=== PATIENT | female | born 1960 | race Hispanic/Latino ===

== ENCOUNTER 2017-10-27 18:09 | Emergency (ER) | payer OTHER ==
[~2017-10-27] VITALS: Ht 157.5 cm; Wt 58.5 kg
[2017-10-27] MEDS ORDERED: SODIUM CHLORIDE 0.9% 1000ML 1,000 ML IV SCH (21:30)
[2017-10-27] MEDS ORDERED: INSULIN REGULAR, HUMAN 100 UNIT/1 ML 3ML VIAL IV ONE (21:30)
[2017-10-27 21:34] LABS: BASOPHILS % 0.5 % (0.0-1.0); EOSINOPHILS # (AUTO) 0.1 (0.0-0.4); EOSINOPHILS % 0.9 % (0.0-6.0); HEMATOCRIT 35.6 % (34.2-44.1); HEMOGLOBIN 12.2 g/dL (12.0-16.0); LYMPHOCYTES # (AUTO) 4.2 (1.0-3.2); LYMPHOCYTES % 49.2 % (18.0-39.1); MEAN CORPUSCULAR HEMOGLOBIN 29.2 pg (28-32); MEAN CORPUSCULAR HGB CONC 34.3 g/dL (31-35); MEAN CORPUSCULAR VOLUME 85.2 fL (81-99); MONOCYTES # (AUTO) 0.8 (0.2-0.8); MONOCYTES % 9.7 % (4.4-11.3); NEUTROPHILS # (AUTO) 3.4 (2.1-6.9); NEUTROPHILS % 39.1 % (38.7-80.0); PLATELET COUNT 233 x10e3/uL (140-360); RED BLOOD COUNT 4.18 x10e6/uL (3.6-5.1); RED CELL DISTRIBUTION WIDTH 12.6 % (11.7-14.4)
[2017-10-27 21:42] LABS: ANION GAP 15.3 mmol/L (8-16); CALCIUM 9.4 mg/dL (8.4-10.2); CREATININE, SERUM 1.68 mg/dL (0.57-1.11); POTASSIUM 4.3 mmol/L (3.5-5.1)
[2017-10-27] MEDS ORDERED: TYLENOL WITH C1 EACH PO (22:13)
[2017-10-27 22:50] VITALS: BP 196/82
== END 2017-10-27 22:55 | disposition home or self-care (01) ==
LOC: ER 18:09
DX: E11.65 Type 2 diabetes mellitus with hyperglycemia (principal)
CPT/HCPCS: 36415; 80048; 82948; 85025; 96360; 96374; 99283; J7030

== ENCOUNTER 2017-12-10 09:42 | Inpatient (IN) | payer OTHER ==
[~2017-12-10] VITALS: Ht 152.4 cm; Wt 61.0 kg
[2017-12-10] VITALS (29 sets, daily range): BP systolic 89–138; BP diastolic 54–94
[~2017-12-10 09:42] MED LIST: TYLENOL WITH C1 EACH PO
[2017-12-10] MEDS ORDERED: SODIUM CHLORIDE 0.9% 1000ML 1,000 ML IV SCH ×3 (10:30→12:30)
[2017-12-10] MEDS ORDERED: SODIUM CHLORIDE FLUSH 10 ML SYR INJ PRN (12:15)
[2017-12-10] MEDS ORDERED: NOREPINEPHRINE INJ 4MG/4ML 8 MG in DEXTROSE 5% 250ML 250 ML IV SCH (12:30)
[2017-12-10] MEDS ORDERED: NOREPINEPHRINE INJ 4MG/4ML 8 MG in SODIUM CHLORIDE 0.9% 250ML 250 ML IV SCH ×2 (14:00→14:30)
[2017-12-10] MEDS ORDERED: LATANOPROST2.5 ML OS (15:41)
[2017-12-10] MEDS ORDERED: ATORVASTATIN CA20 MG PO (15:41)
[2017-12-10] MEDS ORDERED: METHOCARBAMOL750 MG PO (15:41)
[2017-12-10] MEDS ORDERED: HYDROCHLOROTHIA25 MG PO (15:41)
[2017-12-10] MEDS ORDERED: TEMAZEPAM15 MG PO (15:41)
[2017-12-10] MEDS ORDERED: HYDROXYCHLOROQ200 MG PO (15:41)
[2017-12-10] MEDS ORDERED: JANUVIA100 MG PO (15:41)
[2017-12-10] MEDS ORDERED: GABAPENTIN300 MG PO (15:41)
[2017-12-10] MEDS ORDERED: CITALOPRAM HBR20 MG PO (15:41)
[2017-12-10] MEDS ORDERED: METFORMIN HCL500 MG PO (15:41)
[2017-12-10] MEDS ORDERED: GLIPIZIDE ER5 MG PO (15:41)
[2017-12-10] MEDS ORDERED: DORZOLAMIDE HCL10 ML OS (15:41)
[2017-12-10] MEDS ORDERED: METOPROLOL TART25 MG PEG (15:41)
[2017-12-10] MEDS ORDERED: DICLOFENAC 1% GEL TOP (15:41)
[2017-12-10] MEDS ORDERED: LISINOPRIL10 MG PO (15:41)
[2017-12-10] MEDS ORDERED: ULTRAM50 MG PO (15:41)
[2017-12-10] MEDS ORDERED: OMEPRAZOLE40 MG PEG (15:41)
[2017-12-10] MEDS ORDERED: OXYBUTYNIN CHLOR5 MG PO (15:41)
[2017-12-10] MEDS ORDERED: MORPHINE SULFATE 2 MG/ML SYR IV PRN (16:00)
[2017-12-10] MEDS ORDERED: DEXTROSE 50% SYRINGE 50 ML IV PRN (16:30)
[2017-12-10] MEDS: INSULIN REGULAR, HUMAN 100 UNIT/1 ML 3ML VIAL SQ SCH ×2 (18:22→21:00)
[2017-12-10] MEDS: METOCLOPRAMIDE HCL 10 MG TAB PO SCH ×2 (18:23→22:20)
[2017-12-10] MEDS: FAMOTIDINE 20 MG TAB PO SCH (18:23)
[2017-12-10] MEDS: DORZOLAMIDE HCL (OPTH) 10 ML BOTTLE OP SCH (18:24)
[2017-12-10] MEDS: NOREPINEPHRINE 8 MG/D5W 250 ML 250 ML IV SCH (19:00)
[2017-12-10] MEDS ORDERED: SODIUM BICARBONATE 8.4% 50 ML VIAL IV STA (19:05)
[2017-12-10] MEDS ORDERED: SODIUM BICARBONATE 8.4% INJ 50 ML SYR IV NR (19:30)
[2017-12-10 19:49] LABS: ANION GAP 17.2 mmol/L (8-16); CALCIUM 7.8 mg/dL (8.4-10.2); CREATININE, SERUM 7.5 mg/dL (0.57-1.11); POTASSIUM 4.2 mmol/L (3.5-5.1)
[2017-12-10] MEDS ORDERED: SODIUM BICARBONATE 8.4% INJ 50 ML SYR IV STA (20:49)
[2017-12-10] MEDS ORDERED: TEMAZEPAM 15 MG CAP PO SCH (21:00)
--- NOTE | 2017-12-10 21:23 | Diagnostic Imaging Report ---
EXAM: VENTILATION PERFUSION LUNG SCAN INDICATION: 57 F with acute onset SOB and elevated D-dimer. COMPARISON: None DISCUSSION: Xenon-133 gas 20 mCi was administered via inhalation. Dynamic images of the lungs in the posterior projection were obtained through single breath and washout phases. Distribution of tracer activity is mildly irregular throughout the lungs. Washout is diffusely delayed without evidence of air trapping. Perfusion images of the lungs in multiple projections were obtained following intravenous administration of 6 mCi of Tc-99m MAA. Distribution of tracer is mildly irregular throughout the lungs. There are no segmental perfusion defects of any size. The contours of the lungs are well demarcated. The cardiac silhouette is unremarkable. IMPRESSION: 1. Scan findings represent a VERY LOW probability for acute pulmonary embolic disease based on the PIOPED II criteria. 2. Scan findings are compatible with diffuse parenchymal and/or obstructive lung disease. Signed by: Dr. Fariha Higgins M.D. on 12/10/2017 9:20 PM
[2017-12-10] MEDS: SODIUM BICARBONATE 8.4% 150 ML in DEXTROSE 5% 1,000 ML IV SCH (21:39)
[2017-12-10] MEDS: LATANOPROST(OPTH) 2.5 ML BTL OS SCH (21:40)
[2017-12-10] MEDS: HEPARIN SOD (PORCINE) 5,000 UNIT/ML VIAL SC SCH (22:20)
[2017-12-10 22:53] LABS: ANION GAP 18.9 mmol/L (8-16); CALCIUM 7.9 mg/dL (8.4-10.2); CREATININE, SERUM 7.1 mg/dL (0.57-1.11); POTASSIUM 3.9 mmol/L (3.5-5.1)
--- NOTE | 2017-12-10 22:55 | Diagnostic Imaging Report ---
EXAM: US RENAL RETROPERITONEAL COMP INDICATION: \S\acute renal failure COMPARISON: None TECHNIQUE: Transverse and longitudinal images of the kidneys and bladder were obtained. FINDINGS: Right Kidney: Length: 9.2 cm Appearance: Normal echogenicity. Collecting system: No hydronephrosis Stones: None Cyst/Mass: None Left Kidney: Length: 9.5 cm Appearance: Normal echogenicity. Collecting system: No hydronephrosis Stones: None Cyst/Mass: None Bladder: Normal. Bilateral ureteral jets seen. IMPRESSION: No hydronephrosis. Signed by: Dr Yajaira Dias MD on 12/10/2017 10:52 PM
[2017-12-11] VITALS (83 sets, daily range): BP systolic 78–125; BP diastolic 43–67
[2017-12-11 03:02] LABS: ANION GAP 19.2 mmol/L (8-16); CALCIUM 7.7 mg/dL (8.4-10.2); CREATININE, SERUM 5.97 mg/dL (0.57-1.11); POTASSIUM 3.2 mmol/L (3.5-5.1)
[2017-12-11 05:58] LABS: BASOPHILS % 0.1 % (0.0-1.0); EOSINOPHILS % 0.1 % (0.0-6.0); HEMATOCRIT 24.5 % (34.2-44.1); LYMPHOCYTES # (AUTO) 1.2 (1.0-3.2); MEAN CORPUSCULAR HEMOGLOBIN 29.5 pg (28-32); MEAN CORPUSCULAR HGB CONC 36.7 g/dL (31-35); MEAN CORPUSCULAR VOLUME 80.3 fL (81-99); MONOCYTES # (AUTO) 0.8 (0.2-0.8); MONOCYTES % 9.5 % (4.4-11.3); NEUTROPHILS # (AUTO) 5.9 (2.1-6.9); NEUTROPHILS % 74.9 % (38.7-80.0); PLATELET COUNT 186 x10e3/uL (140-360); RED BLOOD COUNT 3.05 x10e6/uL (3.6-5.1); RED CELL DISTRIBUTION WIDTH 12.8 % (11.7-14.4)
[2017-12-11] MEDS: SODIUM BICARBONATE 8.4% 150 ML in DEXTROSE 5% 1,000 ML IV SCH (06:00)
[2017-12-11 06:10] LABS: INR 1.13; PROTHROMBIN TIME 13.6 seconds (11.9-14.5)
[2017-12-11 06:21] LABS: ALBUMIN 2.7 g/dL (3.5-5.0); ALBUMIN/GLOBULIN RATIO 1.1 (0.8-2.0); CALCIUM 7.6 mg/dL (8.4-10.2); CHOL/HDL RATIO 4.1 (3.0-3.6); CREATININE, SERUM 4.97 mg/dL (0.57-1.11); MAGNESIUM 1.4 MG/DL (1.3-2.1); PHOSPHORUS 3.3 MG/DL (2.3-4.7)
[2017-12-11 06:42] LABS: FREE T4 (FREE THYROXINE) 0.96 ng/dL (0.9-1.8); THYROID STIMULATING HORMONE 0.515 uIU/mL (0.350-4.940)
[2017-12-11 07:29] LABS: FOLATE 16.7 ng/mL (7.0-15.4)
[2017-12-11] MEDS: INSULIN REGULAR, HUMAN 100 UNIT/1 ML 3ML VIAL SQ SCH ×4 (08:01→21:10)
[2017-12-11] MEDS: METOCLOPRAMIDE HCL 10 MG TAB PO SCH ×4 (08:05→21:10)
[2017-12-11] MEDS: FAMOTIDINE 20 MG TAB PO SCH ×2 (08:05→15:00)
[2017-12-11] MEDS: OXYBUTYNIN CHLORIDE 5 MG TAB PO SCH (08:05)
[2017-12-11] MEDS: CITALOPRAM HYDROBROMIDE 20 MG TAB PO SCH (08:05)
[2017-12-11] MEDS: DORZOLAMIDE HCL (OPTH) 10 ML BOTTLE OP SCH ×2 (08:06→17:00)
[2017-12-11] MEDS: HEPARIN SOD (PORCINE) 5,000 UNIT/ML VIAL SC SCH ×2 (08:06→21:10)
[2017-12-11] MEDS ORDERED: SITAGLIPTIN 100 MG TAB PO SCH (09:00)
[2017-12-11] MEDS ORDERED: POTASSIUM CHLORIDE 20 MEQ TAB CR PO SCH ×3 (10:15→13:00)
[2017-12-11] MEDS ORDERED: CEFTRIAXONE SOD 1 GM/NS 50 ML 50 ML IV SCH (10:15)
--- NOTE | 2017-12-11 10:39 | History and Physical ---
PRIMARY CARE PROVIDER: Dr. Alise Beard. CHIEF COMPLAINT: Chest pain and near syncope. HISTORY OF PRESENT ILLNESS: Ms. Dawson is a 57-year-old female who came to the emergency department at [facility], which is a free standing emergency room and was subsequently transferred [facility] with complaints of weakness, tiredness, fatigue for a week as well as dry mouth, sleepiness, poor appetite for 1 and 1/2 weeks, chills. She states she had chest pressure that radiated to the back that started about a week ago and earlier today had chest pain. She states she nearly passed out earlier this morning. Her daughters are at the bedside. Since admission a central line has been placed and norepinephrine has been started. She is currently receiving IV fluids. PAST MEDICAL HISTORY: Diabetes mellitus, hypertension, depression, hyperlipidemia, arteritis, glaucoma, stroke in 2010, insomnia. In October her creatinine was 1.68 without any known history of chronic kidney disease per the family. PAST SURGICAL HISTORY: Left total knee replacement 1 year ago. PAST SOCIAL HISTORY: She is . Her primary language is Korean. She is . She has 3 children. She is a housewife. Functional history includes ambulation without difficulty, no use of walker or cane. She denies history of tobacco use, alcohol or illicit drug use. PAST FAMILY HISTORY: The patient's father had a stroke. Mother had diabetes mellitus as well as cancer in the form of a brain tumor. Her brother is diabetic. ALLERGIES: NO KNOWN DRUG ALLERGIES. HOME MEDICATIONS: Metformin, Januvia, metoprolol, lisinopril, hydrochlorothiazide, atorvastatin, tramadol, gabapentin, temazepam, citalopram, dorzolamide-atenolol, latanoprost, ethylcarbinol, diclofenac gel. REVIEW OF SYSTEMS: GENERAL: The patient is lying supine in bed and appears relaxed, no acute distress. She does complain of fever and chills, being tired, having dry mouth. HEENT: Denies any visual complaints. Dry mouth. Denies stuffy nose. CARDIOVASCULAR: As per history of present illness. Currently, denies any chest pain or palpitations. Near syncope occurred earlier this morning without syncope. PULMONARY: Denies shortness of breath, cough, phlegm, dyspnea on exertion. GASTROINTESTINAL: Denies nausea, vomiting, diarrhea, constipation. Her last bowel movement was this morning. GENITOURINARY: She has chronic frequency. Denies urgency or dysuria. MUSCULOSKELETAL: Denies any back pain or joint pain at present. ENDOCRINE: Positive for diabetes. HEMATOLOGY: Denies any bleeding or bruising INFECTIOUS DISEASE: Denies history of HIV or immunodeficiency. NEUROLOGIC: Denies any focal weakness, numbness, tingling or seizures. PHYSICAL EXAMINATION: VITAL SIGNS: Temperature 97.0 earlier, currently 98.2, heart rate 59, blood pressure 77/46 with MAP of 69 earlier which has improved to 103/60, respirations 18, oxygen saturation 98%. Weight 124 pounds. BMI 22.67. GENERAL: The patient is lying supine in bed. A well-nourished, well-developed lady in no apparent distress. HEENT: Pupils are equal, round and reactive to light. Extraocular eye movements intact. Oropharynx is clear. No thrush. Normocephalic, atraumatic. NECK: Supple with no lymphadenopathy, thyromegaly or JVD. No carotid bruits. LYMPHATIC: Bleeding or bruising. He infectious disease tenderness. Has a history of HIV or immunodeficiency. Neurologic denies any focal weakness numbness tingling or seizures physical examination. CARDIOVASCULAR: Regular rate and rhythm. No murmur. LUNGS: Air entry bilaterally. No wheezing, crackles or rhonchi. Lung sounds are clear to auscultation. ABDOMEN: Bowel sounds positive. Soft and nontender. No obvious distention. No hepatosplenomegaly noted. BACK: No costovertebral tenderness. EXTREMITIES: No pitting edema. No clubbing, cyanosis or notable swelling. No signs or symptoms of DVT. INTEGUMENTARY: Warm and dry. NEUROLOGIC: GCS 15. Cranial nerves II-XII intact. Alert and oriented x4. Nonfocal. LABORATORY DATA: From the freestanding ER includes: Sodium 140. Potassium 4.4. CO2 16. Chloride 105. Glucose 126. Calcium 8.8. BUN 117. Creatinine 9.7. Alkaline phos 54. ALT 16. AST 19. Total bilirubin 0.6. Albumin 3.7. Total protein 7.2. CK-MB 2.3. Troponin I less than 0.05. Myoglobin greater than 500. B-natriuretic peptide 41.6. WBC 9.7. Hemoglobin 11.2, hematocrit 31.8, platelets 196,000. D-dimer 934. Urinalysis showed trace amount of ketones. Negative for blood. Specific gravity greater than 1.03. The pH 5.0, protein 100. Negative for nitrites. Small amount of leukocyte esterases. A 12-lead EKG was completed which showed normal sinus rhythm with a ventricular rate of 60. Chest x-ray shows no acute cardiothoracic abnormalities. No focal infiltrates. ASSESSMENT AND PLAN 1. Chest pain. Troponins have been negative thus far. Will ask that a stat troponin be collected now and q.3 h. X2 to complete the set. Myocardial infarction is not suspected. Will hold off on cardiology consult for now. Monitor for any additional chest pain. 2. Acute kidney injury versus acute renal failure. Will give hydration challenge and recollect labs tomorrow. Dr. Archibald with nephrology has been consulted. He asked that Mackenzie catheter be inserted and strict intake and output be documented. We will hold metformin, lisinopril, Januvia and hydrochlorothiazide for now. Continue with aggressive hydration. 3. Elevated D-dimer. Rule out pulmonary embolism. As the patient appears to be in renal failure, we will not do a CT at this time. The case was discussed with Dr. Zamudio. Will get a VQ scan of the chest and place the patient on heparin 5000 units subcu q.12 h. 4. Dehydration with near syncope and hypotension. Continue with aggressive hydration. Nephrology has been consulted. 5. Type 2 diabetes mellitus. Maintain nutritional support with ADA renal diet when no longer n.p.o. The patient was not on insulin at home. Monitor fingerstick blood glucose levels a.c. and nightly. 6. Hypertension. Monitor blood pressure. Antihypertensives held. 7. Fatigue. Physical therapy to evaluate and treat. Supportive care. 8. Urinary frequency. Monitor. Dr. Zamudio to decide if urology consult necessary. 9. Prophylaxis. Pepcid for peptic ulcer disease prophylaxis and heparin for DVT prophylaxis. Dictated by: John Frias, Acute Care Nurse Practitioner Job#: [id number] GH
[2017-12-11 10:52] LABS: ANION GAP 13.8 mmol/L (8-16); CALCIUM 7.4 mg/dL (8.4-10.2); CREATININE, SERUM 3.99 mg/dL (0.57-1.11)
[2017-12-11 10:57] LABS: POTASSIUM 2.8 mmol/L (3.5-5.1)
[2017-12-11] MEDS: SODIUM CHLORIDE 0.9% 1000ML 1,000 ML IV SCH ×2 (12:00→19:45)
[2017-12-11] MEDS: TRAMADOL HCL 50 MG TAB PO PRN ×2 (12:18→18:15)
[2017-12-11 13:21] LABS: BILIRUBIN,URINE NEGATIVE (NEGATIVE); CLARITY,URINE CLEAR (CLEAR); COLOR,URINE YELLOW (YELLOW); KETONES,URINE NEGATIVE (NEGATIVE); LEUKOCYTE ESTERASE ,URINE NEGATIVE (NEGATIVE); NITRITE,URINE NEGATIVE (NEGATIVE); PROTEIN,URINE DIPSTICK NEGATIVE (NEGATIVE); URINE UROBILINOGEN 0.2 mg/dL (0.2 - 1)
[2017-12-11 13:31] LABS: BACTERIA,URINE FEW /HPF; EPITHELIAL CELLS,URINE RARE /LPF
[2017-12-11] MEDS: NOREPINEPHRINE 8 MG/D5W 250 ML 250 ML IV SCH (19:15)
[2017-12-11] MEDS: LATANOPROST(OPTH) 2.5 ML BTL OS SCH (21:10)
--- NOTE | 2017-12-11 22:31 | Consultation ---
DATE OF CONSULTATION: December 11, 2017 REASON FOR CONSULTATION: DAVID on CKD. HPI: Ms. Dawson is a 57-year-old woman admitted to [facility] overnight for acute kidney injury. She has a history of chronic kidney disease, stage 3. She does follow with a flexo press operator but does not remember the name of the flexo press operator. She has a history of diabetes, hypertension and diabetic gastroparesis. According to her daughter, over the past few days, she has had poor p.o. intake and thirst. Since yesterday, she has been becoming more tired and fatigued until her daughter brought her into the emergency department last night. Upon presentation, her blood pressures were 70s over 40s. She was extremely lethargic. She was started on bicarbonate drip at 150 mL per hour, given 150 mEq of bicarbonate. She was also given 2 L of normal saline and started on Levophed. She is currently on a bicarbonate drip at 150 mL per hour. REVIEW OF SYSTEMS: Unable to obtain due to altered mental status. PAST MEDICAL HISTORY 1. Diabetes. 2. Hypertension. 3. Diabetic gastroparesis. FAMILY HISTORY: No renal disease. SOCIAL HISTORY: No alcohol, tobacco or illicit drug use. PHYSICAL EXAMINATION GENERAL: She is lying comfortably in bed, in no acute distress. VITAL SIGNS: Temperature 101.3, respiratory rate 16, heart rate 83, blood pressure 110/55 on 1 mcg of Levophed. HEENT: NC, AT, EOMI. NECK: JVP not appreciated. HEART: Regular rate and rhythm, S1 and S2 normal. ABDOMEN: Soft, nontender, nondistended. EXTREMITIES: No edema. Intact pulses. SKIN: No rashes or lesions. MUSCULOSKELETAL: Normal inspection. NEURO: Responsive to voice but unaware of time, place or person. LABS: Reviewed on electronic medical record. Upon presentation, creatinine was 7.5. It has improved to 4.9. BUN was 110 and has improved to 95. Potassium is 4.2 and is currently 3 mEq/L. Imaging performed upon presentation included a renal ultrasound that was negative for hydronephrosis and showed normal size kidneys at 9.2 and 9.5 cm. V/Q scan performed on presentation showed a very low probability for acute PE. ASSESSMENT AND PLAN 1. Nonoliguric acute kidney injury on chronic kidney disease. Kidney function continues to improve with hydration. Will continue IV fluids. 2. Sepsis. She is febrile this morning. Question whether the femoral catheter is responsible. We will obtain a chest x-ray. Blood culture are already ordered. 3. Hypokalemia likely secondary to bicarbonate. Will repeat with 40 mEq of potassium chloride. 4. Metabolic acidosis has resolved with administration of normal saline. Will decrease frequency of lab checks to q.8 h. Thank you, Dr. Zamudio, for allowing me to participate in the care of Ms. Dawson. We will continue to follow closely. Job#: [id number]
[2017-12-12] VITALS (48 sets, daily range): BP systolic 100–150; BP diastolic 46–90
[2017-12-12] MEDS: SODIUM CHLORIDE 0.9% 1000ML 1,000 ML IV SCH ×2 (05:45→16:56)
[2017-12-12 06:28] LABS: BASOPHILS % 0.2 % (0.0-1.0); EOSINOPHILS # (AUTO) 0.1 (0.0-0.4); HEMATOCRIT 23.3 % (34.2-44.1); HEMOGLOBIN 8.1 g/dL (12.0-16.0); LYMPHOCYTES % 32.7 % (18.0-39.1); MEAN CORPUSCULAR HEMOGLOBIN 29.7 pg (28-32); MEAN CORPUSCULAR HGB CONC 34.8 g/dL (31-35); MEAN CORPUSCULAR VOLUME 85.3 fL (81-99); MONOCYTES # (AUTO) 0.8 (0.2-0.8); NEUTROPHILS # (AUTO) 3.4 (2.1-6.9); NEUTROPHILS % 53.8 % (38.7-80.0); PLATELET COUNT 164 x10e3/uL (140-360); RED BLOOD COUNT 2.73 x10e6/uL (3.6-5.1); RED CELL DISTRIBUTION WIDTH 13.1 % (11.7-14.4)
[2017-12-12 06:54] LABS: ANION GAP 11.8 mmol/L (8-16); CALCIUM 7.4 mg/dL (8.4-10.2); CREATININE, SERUM 2.13 mg/dL (0.57-1.11); POTASSIUM 3.8 mmol/L (3.5-5.1)
[2017-12-12 07:00] LABS: MAGNESIUM 1.1 MG/DL (1.3-2.1)
[2017-12-12] MEDS: INSULIN REGULAR, HUMAN 100 UNIT/1 ML 3ML VIAL SQ SCH ×4 (07:24→21:43)
[2017-12-12] MEDS: CITALOPRAM HYDROBROMIDE 20 MG TAB PO SCH (07:29)
[2017-12-12] MEDS: DORZOLAMIDE HCL (OPTH) 10 ML BOTTLE OP SCH ×2 (07:29→15:56)
[2017-12-12] MEDS: FAMOTIDINE 20 MG TAB PO SCH ×2 (07:29→15:56)
[2017-12-12] MEDS: METOCLOPRAMIDE HCL 10 MG TAB PO SCH ×4 (07:29→21:41)
[2017-12-12] MEDS: OXYBUTYNIN CHLORIDE 5 MG TAB PO SCH (07:30)
[2017-12-12] MEDS: HEPARIN SOD (PORCINE) 5,000 UNIT/ML VIAL SC SCH ×2 (07:30→21:42)
[2017-12-12] MEDS ORDERED: MAGNESIUM SULFATE 2GM/50ML 50 ML IV ONE (08:00)
[2017-12-12] MEDS ORDERED: CEFTRIAXONE SOD 1 GM/NS 50 ML 50 ML IV SCH (13:00)
[2017-12-12] MEDS: CEFTRIAXONE SOD 1 GM VIAL IV SCH (13:22)
[2017-12-12] MEDS: TRAMADOL HCL 50 MG TAB PO PRN ×2 (13:22→20:04)
--- NOTE | 2017-12-12 15:29 | Progress Note ---
DATE: December 12, 2017 NEPHROLOGY PROGRESS NOTE REASON FOR CONSULTATION: DAVID. SUBJECTIVE: Mental status improved considerably. Feels like she is back to her normal. OBJECTIVE GENERAL: Lying comfortably in bed, no acute distress. VITAL SIGNS: Temperature 99.2, heart rate 68, respiratory rate 16, blood pressure 127/70, O2 sat is 95% on room air. HEENT: NC/AT, EOMI. LUNGS: Clear to auscultation bilaterally. No wheezing, no rales. HEART: Regular rhythm. S1 and S2 normal. EXTREMITIES: No edema. LABS: Were reviewed in electronic medical record. Significant for a hemoglobin of 9, potassium of 3.8 this morning with a BUN of 54 and creatinine of 2.1. Magnesium of 1.1. IMAGING: Was reviewed in electronic medical record. ASSESSMENT AND PLAN 1. Nonoliguric acute kidney injury secondary to prerenal azotemia. Kidney function continues to improve. PO intake remains low; so, will decrease fluids to 50. Will remove femoral catheter. 2. Hypomagnesemia. Replaced this morning with 2 g of magnesium sulfate. 3. Hypokalemia, improved. 4. Metabolic acidosis, improved status post intravenous fluid. 5. Septic shock, resolved, now off of Levophed. Job#: [id number] EV
[2017-12-12] MEDS: LATANOPROST(OPTH) 2.5 ML BTL OS SCH (22:03)
[2017-12-13] VITALS (7 sets, daily range): BP systolic 127–172; BP diastolic 66–77
[2017-12-13] MEDS: CEFTRIAXONE SOD 1 GM VIAL IV SCH ×2 (01:24→12:29)
[2017-12-13] MEDS: TRAMADOL HCL 50 MG TAB PO PRN ×2 (05:26→19:52)
[2017-12-13 07:26] LABS: BASOPHILS % 0.1 % (0.0-1.0); EOSINOPHILS # (AUTO) 0.1 (0.0-0.4); HEMATOCRIT 23.8 % (34.2-44.1); HEMOGLOBIN 8.3 g/dL (12.0-16.0); LYMPHOCYTES # (AUTO) 1.6 (1.0-3.2); LYMPHOCYTES % 19.7 % (18.0-39.1); MEAN CORPUSCULAR HEMOGLOBIN 29.5 pg (28-32); MEAN CORPUSCULAR HGB CONC 34.9 g/dL (31-35); MEAN CORPUSCULAR VOLUME 84.7 fL (81-99); MONOCYTES # (AUTO) 0.9 (0.2-0.8); MONOCYTES % 10.5 % (4.4-11.3); NEUTROPHILS # (AUTO) 5.7 (2.1-6.9); NEUTROPHILS % 68.5 % (38.7-80.0); PLATELET COUNT 167 x10e3/uL (140-360); RED BLOOD COUNT 2.81 x10e6/uL (3.6-5.1); RED CELL DISTRIBUTION WIDTH 12.7 % (11.7-14.4)
[2017-12-13] MEDS: INSULIN REGULAR, HUMAN 100 UNIT/1 ML 3ML VIAL SQ SCH ×4 (07:30→21:00)
[2017-12-13 07:45] LABS: CREATININE, SERUM 1.52 mg/dL (0.57-1.11); MAGNESIUM 1.2 MG/DL (1.3-2.1)
[2017-12-13] MEDS ORDERED: ONDANSETRON HCL INJ 2 MG/ML VIAL IV PRN (10:15)
[2017-12-13] MEDS ORDERED: HYDRALAZINE HCL 20 MG/ML VIAL IV PRN (10:15)
[2017-12-13] MEDS ORDERED: BISACODYL 5 MG TAB EC PO PRN (10:15)
[2017-12-13] MEDS ORDERED: ACETAMINOPHEN 325 MG TAB PO PRN (10:15)
[2017-12-13] MEDS: CITALOPRAM HYDROBROMIDE 20 MG TAB PO SCH (10:18)
[2017-12-13] MEDS: METOCLOPRAMIDE HCL 10 MG TAB PO SCH (10:18)
[2017-12-13] MEDS: DORZOLAMIDE HCL (OPTH) 10 ML BOTTLE OP SCH ×2 (10:18→17:16)
[2017-12-13] MEDS: FAMOTIDINE 20 MG TAB PO SCH ×2 (10:18→17:02)
[2017-12-13] MEDS: HEPARIN SOD (PORCINE) 5,000 UNIT/ML VIAL SC SCH ×2 (10:18→20:34)
[2017-12-13] MEDS: OXYBUTYNIN CHLORIDE 5 MG TAB PO SCH (10:18)
[2017-12-13] MEDS ORDERED: POTASSIUM PHOSPHATE 20 MM in SODIUM CHLORIDE 0.9% 250ML 250 ML IV ONE (10:30)
[2017-12-13] MEDS ORDERED: MAGNESIUM SULFATE 2GM/50ML 50 ML IV ONE (10:30)
[2017-12-13] MEDS: DOCUSATE SODIUM 100 MG CAP PO SCH ×2 (11:08→17:03)
[2017-12-13 11:30] LABS: ANION GAP 11.9 mmol/L (8-16); CALCIUM 8.2 mg/dL (8.4-10.2); CREATININE, SERUM 1.52 mg/dL (0.57-1.11); MAGNESIUM 1.2 MG/DL (1.3-2.1); POTASSIUM 3.9 mmol/L (3.5-5.1)
[2017-12-13] MEDS: METOCLOPRAMIDE HCL 10 MG/2ML VIAL IV SCH ×3 (11:30→20:34)
[2017-12-13] MEDS: LIDOCAINE 5% PATCH TP SCH (12:00)
[2017-12-13] MEDS ORDERED: TEMAZEPAM 15 MG CAP PO PRN (16:15)
[2017-12-13] MEDS: HYDROMORPHONE 1MG/1ML INJ IV PRN ×2 (17:03→20:36)
--- NOTE | 2017-12-13 17:31 | Diagnostic Imaging Report ---
EXAM: US EXTREMITY MCGUIRE NON-VAS INDICATION: \S\right upper back \S\Y COMPARISON: None TECHNIQUE: Transverse and sagittal images were performed of the subcutaneous soft tissues of the right upper back.. FINDINGS: No masses or fluid collections within the visualized subcutaneous soft tissues of the right upper back. The soft tissues appear relatively symmetric when compared to the left. IMPRESSION: No masses or fluid collections within the visualized subcutaneous soft tissues of the right upper back. Signed by: DR. Juanpablo Harrison MD on 12/13/2017 5:27 PM
--- NOTE | 2017-12-13 18:09 | Progress Note ---
DATE: December 13, 2017 RENAL PROGRESS NOTE SUBJECTIVE: Followed for acute kidney injury on chronic kidney disease stage 3, recovering kidney functions back to a chronic kidney disease 3 baseline. Creatinine is 1.5 today off IV fluids. No nausea, no vomiting, no shortness of breath. OBJECTIVE VITAL SIGNS: Noted and are stable. LUNGS: Clear to auscultation bilaterally. CARDIOVASCULAR: S1 and S2, no rubs. ABDOMEN: Soft and nontender. EXTREMITIES: No edema. LABORATORY DATA: Reviewed. Creatinine is 1.5, potassium normal. IMPRESSION 1. Chronic kidney disease stage 3, stable. Off IV fluids now. 2. Hypertension, stable. 3. Serum creatinine stable. 4. Metabolic acidosis, resolved. The patient is off IV fluids. Job#: [id number] GH
[2017-12-13] MEDS: LATANOPROST(OPTH) 2.5 ML BTL OS SCH (20:34)
[2017-12-14] VITALS (7 sets, daily range): BP systolic 129–160; BP diastolic 62–88
[2017-12-14] MEDS: CEFTRIAXONE SOD 1 GM VIAL IV SCH ×2 (01:20→12:54)
[2017-12-14] MEDS: INSULIN REGULAR, HUMAN 100 UNIT/1 ML 3ML VIAL SQ SCH ×4 (07:30→21:19)
[2017-12-14 08:08] LABS: BASOPHILS % 0.4 % (0.0-1.0); EOSINOPHILS # (AUTO) 0.1 (0.0-0.4); EOSINOPHILS % 0.8 % (0.0-6.0); HEMATOCRIT 27.8 % (34.2-44.1); LYMPHOCYTES # (AUTO) 1.5 (1.0-3.2); LYMPHOCYTES % 20.8 % (18.0-39.1); MEAN CORPUSCULAR HEMOGLOBIN 29.5 pg (28-32); MEAN CORPUSCULAR HGB CONC 32.4 g/dL (31-35); MEAN CORPUSCULAR VOLUME 91.1 fL (81-99); MONOCYTES # (AUTO) 0.7 (0.2-0.8); MONOCYTES % 9.6 % (4.4-11.3); NEUTROPHILS # (AUTO) 4.8 (2.1-6.9); NEUTROPHILS % 67.7 % (38.7-80.0); PLATELET COUNT 131 x10e3/uL (140-360); RED BLOOD COUNT 3.05 x10e6/uL (3.6-5.1); RED CELL DISTRIBUTION WIDTH 12.9 % (11.7-14.4)
[2017-12-14] MEDS ORDERED: LIDOCAINE 5% PATCH TP SCH ×2 (09:00→12:30)
--- NOTE | 2017-12-14 09:42 | Diagnostic Imaging Report ---
EXAMINATION: CHEST SINGLE (PORTABLE) INDICATION: \S\SOB \S\[id number] \S\[id number] COMPARISON: None FINDINGS: AP view TUBES and LINES: None. LUNGS: Low lung volumes. Pulmonary vascular congestion and mild interstitial edema. PLEURA: No pneumothorax. Trace left pleural effusion. HEART AND MEDIASTINUM: The cardiomediastinal silhouette is enlarged. BONES AND SOFT TISSUES: No acute osseous lesion. Soft tissues are unremarkable. UPPER ABDOMEN: No free air under the diaphragm. IMPRESSION: Pulmonary vascular congestion and mild interstitial edema. Trace left pleural effusion. Signed by: Dr. Judd Celaya MD on 12/14/2017 9:38 AM
[2017-12-14] MEDS: DORZOLAMIDE HCL (OPTH) 10 ML BOTTLE OP SCH ×2 (10:21→17:00)
[2017-12-14] MEDS: DOCUSATE SODIUM 100 MG CAP PO SCH ×2 (10:21→17:00)
[2017-12-14] MEDS: HEPARIN SOD (PORCINE) 5,000 UNIT/ML VIAL SC SCH ×2 (10:21→21:15)
[2017-12-14] MEDS: CITALOPRAM HYDROBROMIDE 20 MG TAB PO SCH (10:21)
[2017-12-14] MEDS: METOCLOPRAMIDE HCL 10 MG/2ML VIAL IV SCH ×4 (10:21→21:14)
[2017-12-14] MEDS: FAMOTIDINE 20 MG TAB PO SCH ×2 (10:21→17:00)
[2017-12-14] MEDS: OXYBUTYNIN CHLORIDE 5 MG TAB PO SCH (10:21)
[2017-12-14 10:43] LABS: ANION GAP 16.3 mmol/L (8-16); CALCIUM 8.1 mg/dL (8.4-10.2); CREATININE, SERUM 1.3 mg/dL (0.57-1.11); MAGNESIUM 1.5 MG/DL (1.3-2.1); PHOSPHORUS 3.1 MG/DL (2.3-4.7); POTASSIUM 4.3 mmol/L (3.5-5.1)
[2017-12-14] MEDS ORDERED: FUROSEMIDE INJ 10 MG/ML 4 ML VIAL IV ONE ×2 (11:30→14:00)
[2017-12-14] MEDS ORDERED: NORVASC10 MG PO (12:04)
[2017-12-14] MEDS ORDERED: Lidocaine Patch TP (12:04)
[2017-12-14] MEDS ORDERED: BACLOFEN10 MG PO (12:04)
[2017-12-14] MEDS ORDERED: REGLAN10 MG PO (12:04)
[2017-12-14] MEDS ORDERED: CEFTIN PO (12:10)
[2017-12-14] MEDS ORDERED: METOPROLOL TART25 MG PO (12:17)
[2017-12-14] MEDS ORDERED: OMEPRAZOLE40 MG PO (12:18)
[2017-12-14] MEDS ORDERED: BACLOFEN 10 MG TAB PO PRN (12:30)
[2017-12-14] MEDS: LIDOCAINE 5% PATCH TP SCH (12:54)
[2017-12-14] MEDS: GABAPENTIN 300 MG CAP PO SCH ×2 (17:00→21:14)
[2017-12-14] MEDS: METOPROLOL TARTRATE 25 MG TAB PO SCH (17:00)
[2017-12-14] MEDS ORDERED: ATORVASTATIN 40 MG TAB PO SCH (21:00)
[2017-12-14] MEDS: LATANOPROST(OPTH) 2.5 ML BTL OS SCH (21:14)
[2017-12-14] MEDS ORDERED: SODIUM CHLORIDE 0.9% 250ML 250 ML ONE (22:38)
[2017-12-15] VITALS: BP 113/57
[2017-12-15] MEDS: CEFTRIAXONE SOD 1 GM VIAL IV SCH ×2 (02:05→12:47)
[2017-12-15 04:00] VITALS: BP 161/83
--- NOTE | 2017-12-15 06:37 | Diagnostic Imaging Report ---
CHEST SINGLE (PORTABLE), 12/15/2017 5:00 AM Technique: CHEST SINGLE (PORTABLE) Comparison: 12/14/2017 Clinical history: Shortness of breath Findings: See Impression Impression: 1. Stable cardiomediastinal silhouette. 2. Diffuse bilateral opacities, favor edema with bibasilar atelectasis. Possible underlying pleural effusions. Signed by: Dr Yajaira Dias MD on 12/15/2017 6:34 AM
[2017-12-15 07:01] LABS: BASOPHILS % 0.4 % (0.0-1.0); EOSINOPHILS # (AUTO) 0.2 (0.0-0.4); EOSINOPHILS % 2.6 % (0.0-6.0); HEMATOCRIT 24.7 % (34.2-44.1); HEMOGLOBIN 8.2 g/dL (12.0-16.0); LYMPHOCYTES # (AUTO) 1.9 (1.0-3.2); LYMPHOCYTES % 26.1 % (18.0-39.1); MEAN CORPUSCULAR HEMOGLOBIN 29.2 pg (28-32); MEAN CORPUSCULAR HGB CONC 33.2 g/dL (31-35); MEAN CORPUSCULAR VOLUME 87.9 fL (81-99); MONOCYTES # (AUTO) 0.9 (0.2-0.8); NEUTROPHILS # (AUTO) 4.3 (2.1-6.9); NEUTROPHILS % 58.4 % (38.7-80.0); PLATELET COUNT 189 x10e3/uL (140-360); RED BLOOD COUNT 2.81 x10e6/uL (3.6-5.1); RED CELL DISTRIBUTION WIDTH 12.7 % (11.7-14.4)
[2017-12-15] MEDS: INSULIN REGULAR, HUMAN 100 UNIT/1 ML 3ML VIAL SQ SCH ×2 (07:30→12:48)
[2017-12-15 07:40] VITALS: BP 174/74
[2017-12-15 07:40] LABS: ANION GAP 11.6 mmol/L (8-16); CALCIUM 8.4 mg/dL (8.4-10.2); CREATININE, SERUM 1.64 mg/dL (0.57-1.11); POTASSIUM 3.6 mmol/L (3.5-5.1)
[2017-12-15 07:51] LABS: MAGNESIUM 1.4 MG/DL (1.3-2.1)
[2017-12-15] MEDS ORDERED: NIFEDIPINE ER30 M1 PO (08:42)
[2017-12-15] MEDS ORDERED: CEFTIN PO (08:42)
--- NOTE | 2017-12-15 08:58 | Consultation ---
DATE OF CONSULTATION: December 14, 2017 REASON FOR CONSULTATION: CHF. CONSULTING PHYSICIAN: Dr. Zamudio HPI: This is a 57-year-old female that presented with generalized weakness. According to the family, she was having decreased appetite times 1 to 2 weeks, very weak, and very tired that they brought her to the emergency room for evaluation at [facility] ER. Over there, they found that her blood pressure was in the 70s and she was sent over here for higher level of care. Her blood pressure was in the 70s and she was started on Levophed drip and some IV fluids. Yesterday, cardiology was consulted for possible CHF due to the shortness of breath. She also complained of chest pain and near syncope. Troponin was negative. EKG showed no ST abnormalities. BNP 480. PAST MEDICAL HISTORY: Diabetes, hypertension, CKD, diabetic gastroparesis, glaucoma, hyperlipidemia, arthritis, stroke, and UTIs. PAST SURGICAL HISTORY: Left knee replacement last year. SOCIAL HISTORY: No smoking, no drinking. She lives at home with the and the kids. MEDICATIONS: See med list. ALLERGIES: SHE IS NOT ALLERGIC TO ANY MEDICATION. REVIEW OF THE SYSTEMS: Negative except those mentioned above. PHYSICAL EXAMINATION: VITAL SIGNS: Temperature 98, heart rate 62, blood pressure 161/83, respiration 18, oxygen saturation 95% on 2 liters nasal cannula. GENERAL: She is alert, awake, and oriented x3, but very weak and lethargic. NECK: Supple. LUNGS: Bilaterally clear to auscultation. CARDIOVASCULAR: S1 and S2 present. ABDOMEN: Soft. NEUROLOGICAL: Intact. EXTREMITIES: With no edema. LABS: Sodium 144, potassium 3.6, chloride 102, CO2 34, BUN 20, creatinine 1.64, glucose 151. White blood cell 7.31, hemoglobin 8.2, hematocrit 24.7, platelet 189,000. PT 13.6, INR 1.13. IMPRESSION: 1. Possible congestive heart failure. 2. Diabetes. 3. Hypertension. 4. Anemia. 5. Chest pain. 6. Syncope. ASSESSMENT AND PLAN: 1. She has no clinical symptoms of congestive heart failure, but will get an echocardiogram to assess the left ventricle and the valve function. 2. Her blood pressure is resolved now. She has syncope due to low blood pressure. 3. Chest pain, better. Troponin negative. She can be followed up as outpatient for possible stress test. If the chest pain continued, will continue her home medications. Further cardiac workup pending clinical course. Thank you for this consultation. Dictated by: Bernardino Vasquez NP Job#: [id number]
[2017-12-15] MEDS ORDERED: HYDROCHLOROTHIAZIDE 25 MG TAB PO SCH (09:00)
[2017-12-15] MEDS ORDERED: NIFEDIPINE CR 30 MG TAB PO SCH (09:00)
[2017-12-15] MEDS ORDERED: LISINOPRIL 10 MG TAB PO SCH (09:00)
[2017-12-15] MEDS ORDERED: HYDROXYCHLOROQUINE SULFATE 200 MG TAB PO SCH (09:00)
[2017-12-15] MEDS: OXYBUTYNIN CHLORIDE 5 MG TAB PO SCH (09:08)
[2017-12-15] MEDS: FAMOTIDINE 20 MG TAB PO SCH (09:08)
[2017-12-15] MEDS: CITALOPRAM HYDROBROMIDE 20 MG TAB PO SCH (09:08)
[2017-12-15] MEDS: METOPROLOL TARTRATE 25 MG TAB PO SCH (09:08)
[2017-12-15] MEDS: GABAPENTIN 300 MG CAP PO SCH (09:08)
[2017-12-15] MEDS: DOCUSATE SODIUM 100 MG CAP PO SCH (09:08)
[2017-12-15] MEDS: DORZOLAMIDE HCL (OPTH) 10 ML BOTTLE OP SCH (09:08)
[2017-12-15] MEDS: METOCLOPRAMIDE HCL 10 MG/2ML VIAL IV SCH ×2 (09:08→12:47)
[2017-12-15] MEDS: HEPARIN SOD (PORCINE) 5,000 UNIT/ML VIAL SC SCH (09:09)
--- NOTE | 2017-12-15 11:08 | Progress Note ---
DATE: December 15, 2017 RENAL PROGRESS NOTE SUBJECTIVE: Followed for acute kidney injury on chronic kidney disease stage 3. Kidney function appears to be stable now at 1.2 creatinine. Patient appears slightly on the volume depleted side, still with metabolic alkalosis ensuing. No nausea, no vomiting, no shortness of breath. OBJECTIVE VITAL SIGNS: Noted and are stable. Blood pressure is slightly high this morning 174/74. Pulse 60. LUNGS: Clear to auscultation bilaterally. CARDIOVASCULAR: S1 and S2, no rubs, gallops or murmur. ABDOMEN: Soft and nontender. EXTREMITIES: No edema. LABS: Today, potassium 3.6, bicarbonate of 34, BUN 20 and creatinine is 1.6. IMPRESSIONS AND PLAN 1. Chronic kidney disease stage 3, continues to be at her baseline chronic kidney disease stage 3. We will continue to monitor closely and make further recommendations. 2. Hypertension, blood pressure appears to be elevated, suspect that she will need to stay on her lisinopril. However, the creatinine did rise slightly at 1.6 mg/dL today. We will watch closely. If blood pressure does go up more, would place back on the lisinopril at a lower dose perhaps. 3. Metabolic alkalosis, feel maybe from volume contraction. Patient was given 1 dose of Lasix yesterday intravenously. We will monitor of intravenous fluids today. If her creatinine trends upwards, may start back on some intravenous fluids. Job#: [id number]
[2017-12-15 12:01] VITALS: BP 170/72
[2017-12-15] MEDS: LIDOCAINE 5% PATCH TP SCH (12:47)
--- NOTE | 2017-12-16 14:54 | Discharge Summary ---
ADMISSION DIAGNOSES 1. Chest pain. 2. Acute kidney injury. 3. Elevated D-dimer. 4. Dehydration. 5. Type 2 diabetes. 6. Fatigue. 7. Urinary tract infection. DISCHARGE DIAGNOSES 1. Chest pain. 2. Acute kidney injury. 3. Elevated D-dimer. 4. Dehydration. 5. Type 2 diabetes. 6. Fatigue. 7. Urinary tract infection. 8. Ruled out myocardial infarction. 9. Ruled out pulmonary embolism. HISTORY: Patient has a history of diabetes, hypertension, depression, hyperlipidemia, arteritis, glaucoma, stroke in . HOSPITAL COURSE: A 57-year-old female presents with weakness, tiredness, fatigue, as well as sleepiness, poor appetite, and chills for about a week chest pressure that radiated to the back, started about a week ago, and states that she nearly passed out admission a central line was placed and the patient was started on norepinephrine. Troponins were negative. EKG showed normal sinus. Nephrology consulted for acute kidney injury. V/Q scan showed very low probability for acute pulmonary embolic disease based on PIOPED II criteria. Patient had a mass on her right back which appeared to have some fluid collection under it; so, ultrasound was ordered that showed no masses or fluid collections within the tissues of the right upper back. Patient denied chest pain until the day before discharge, and then she also started to complain of shortness of breath and dyspnea on exertion. So, Cardiology was consulted and echo was done. Troponins were still negative. The echo showed an EF of 60% to 65%. Patient did require oxygen as her O2 on room air was 87% on rest. A chest x-ray was then ordered, which showed pulmonary vascular congestion and mild interstitial edema, trace left pleural effusion. Patient was given bolus of Lasix, which appeared to help. Patient was also given Reglan that helped her appetite and was started on Ceftin for UTI symptoms. Urine culture showed staph. Blood culture remained stable. Patient is tolerating diet with increased appetite. Stool for blood was negative. On day of discharge patient's hemoglobin was 8.2, WBC 7.31, sodium 144, potassium 3.6, , GFR 32, BUN of 20, and BNP of 480. Patient was sent home on home meds but taken off her lisinopril, was given baclofen for spasms, Reglan, Ceftin for 3 more days, and lidocaine patch for her back. Patient will follow up with Cardiology for possible stress test and follow up with primary care in 1 to 2 . At time of discharge patient is feeling much better and has no complaints. She was sent with oxygen. Dictated by: Capri Valera NP PETER SCHWARZ MD Job#: [id number] EV
== END 2017-12-15 14:13 | disposition home or self-care (01) | DRG 871 ==
LOC: FSED 09:42 → ERHOLD 14:48 → ICU 15:54 → MED/SURG 12-12 16:38
PROVIDERS: ADMIT Internal Medicine; ATTEND Internal Medicine
PROC: 06HM33Z Insertion of Infusion Device into Right Femoral Vein, Percutaneous Approach (ICD-10-PCS; principal; 2017-12-10)
DX: A41.9 Sepsis, unspecified organism (principal); R57.1 Hypovolemic shock; N17.9 Acute kidney failure, unspecified; N39.0 Urinary tract infection, site not specified; E87.2 Acidosis; J81.1 Chronic pulmonary edema; N18.3 Chronic kidney disease, stage 3 (moderate); I12.9 Hypertensive chronic kidney disease with stage 1 through stage 4 chronic kidney disease, or unspecified chronic kidney disease; K21.9 Gastro-esophageal reflux disease without esophagitis; E86.0 Dehydration; R53.83 Other fatigue; F32.9 Major depressive disorder, single episode, unspecified; Z86.73 Personal history of transient ischemic attack (TIA), and cerebral infarction without residual deficits; D64.9 Anemia, unspecified; E87.6 Hypokalemia; E83.42 Hypomagnesemia; B95.8 Unspecified staphylococcus as the cause of diseases classified elsewhere; R35.0 Frequency of micturition; E11.22 Type 2 diabetes mellitus with diabetic chronic kidney disease; R07.89 Other chest pain; Z87.11 Personal history of peptic ulcer disease
CPT/HCPCS: 36415; 36555; 71045; 76770; 76882; 78582; 80048; 80053; 80061; 81001; 82270; 82607; 82746; 82948; 83036; 83540; 83605; 83735; 83880; 84100; 84439; 84443; 84466; 84484; 85025; 85610; 87040; 87086; 87186; 93005; 93306; 96372; 99284; J0360; J0696; J1170; J1644; J1940; J2270; J2405; J2765; J7030; J7050; J7070

== ENCOUNTER 2018-07-13 18:14 | Emergency (ER) | payer OTHER ==
[~2018-07-13] VITALS: Ht 152.4 cm; Wt 60.8 kg
[~2018-07-13 18:14] MED LIST changes: +ATORVASTATIN CA20 MG PO; +BACLOFEN10 MG PO; +CEFTIN PO; +CITALOPRAM HBR20 MG PO; +DICLOFENAC 1% GEL TOP; +DORZOLAMIDE HCL10 ML OS; +GABAPENTIN300 MG PO; +GLIPIZIDE ER5 MG PO; +HYDROCHLOROTHIA25 MG PO; +HYDROXYCHLOROQ200 MG PO; +JANUVIA100 MG PO; +LATANOPROST2.5 ML OS; +LISINOPRIL10 MG PO; +Lidocaine Patch TP; +METFORMIN HCL500 MG PO; +METHOCARBAMOL750 MG PO; +METOPROLOL TART25 MG PEG; +METOPROLOL TART25 MG PO; +NIFEDIPINE ER30 M1 PO; +NORVASC10 MG PO; +OMEPRAZOLE40 MG PEG; +OMEPRAZOLE40 MG PO; +OXYBUTYNIN CHLOR5 MG PO; +REGLAN10 MG PO; +TEMAZEPAM15 MG PO; +ULTRAM50 MG PO
[2018-07-13 18:58] LABS: BASOPHILS % 0.3 % (0.0-1.0); EOSINOPHILS # (AUTO) 0.1 (0.0-0.4); EOSINOPHILS % 1.9 % (0.0-6.0); HEMATOCRIT 34.5 % (34.2-44.1); HEMOGLOBIN 11.7 g/dL (12.0-16.0); LYMPHOCYTES # (AUTO) 2.9 (1.0-3.2); MEAN CORPUSCULAR HEMOGLOBIN 30.1 pg (28-32); MEAN CORPUSCULAR HGB CONC 33.9 g/dL (31-35); MEAN CORPUSCULAR VOLUME 88.7 fL (81-99); MONOCYTES # (AUTO) 0.7 (0.2-0.8); MONOCYTES % 12.7 % (4.4-11.3); NEUTROPHILS % 34.2 % (38.7-80.0); PLATELET COUNT 230 x10e3/uL (140-360); RED BLOOD COUNT 3.89 x10e6/uL (3.6-5.1); RED CELL DISTRIBUTION WIDTH 13.6 % (11.7-14.4)
[2018-07-13 19:15] LABS: ALANINE AMINOTRANSFERASE 19 IU/L (0-55); ALBUMIN 4.3 g/dL (3.5-5.0); ALBUMIN/GLOBULIN RATIO 1.5 (0.8-2.0); ALKALINE PHOSPHATASE 74 IU/L (40-150); ANION GAP 12.3 mmol/L (8-16); BLOOD UREA NITROGEN 21 mg/dL (7-26); BUN/CREATININE RATIO 17 (6-25); CALCIUM 9.4 mg/dL (8.4-10.2); CARBON DIOXIDE 26 mmol/L (22-29); CHLORIDE 108 mmol/L (98-107); CREATINE KINASE 124 IU/L (29-168); CREATININE, SERUM 1.25 mg/dL (0.57-1.11); EST GLOMERULAR FILTRATION RATE 44 ML/MIN (60-); GLUCOSE 118 mg/dL (74-118); MAGNESIUM 2.2 MG/DL (1.3-2.1); POTASSIUM 3.3 mmol/L (3.5-5.1); SODIUM 143 mmol/L (136-145)
[2018-07-13 19:26] LABS: INR 0.87; PROTHROMBIN TIME 12.6 seconds (11.9-14.5)
[2018-07-13 19:27] LABS: PARTIAL THROMBOPLASTIN TIME 29.2 seconds (23.8-35.5)
--- NOTE | 2018-07-13 19:39 | Diagnostic Imaging Report ---
EXAMINATION: Head CT without contrast. HISTORY:Left side facial twitching, history of CVA. COMPARISON:None. TECHNIQUE: Multidetector axial images were obtained from the foramen magnum to the vertex without contrast. The images were reconstructed using brain and bone algorithms. Thin section brain images were reformatted into coronal and sagittal planes. Dose modulation, iterative reconstruction, and/or weight based adjustment of the mA/kV was utilized to reduce the radiation dose to as low as reasonably achievable. Intravenous contrast: None IMAGE QUALITY: Suboptimal evaluation particularly of the skull base and posterior fossa structures due to motion artifacts. FINDINGS: Skull/scalp: No lytic or blastic. lesions. No surgical changes. Parenchyma: Focal hypodensity in genu of right internal capsule represents old lacunar infarct. Nonspecific few, scattered supratentorial white matter hypodensity are likely related to small vessel ischemic changes. No acute hemorrhage, mass or acute major vascular territorial infarct. Arteries: No density suggestive of thrombosis. Mild atherosclerotic calcification in bilateral carotid siphon. Dural sinuses: No abnormal density suggestive of thrombosis. Ventricles: No hydrocephalus or displacement. Extra-axial spaces: A 1.7 x 1.7 x 0.9 mm partially calcified hyperdense left occipital extra-axial lesion with adjacent calvarial hyperostosis particularly involving a new table of the calvarium represents an incidental meningioma. Mild regional mass effect. No significant surrounding soft tissue edema. Brain volume: Normal for age. Craniocervical junction: No mass, Chiari malformation, or basilar invagination. Sella: No mass. Paranasal/mastoid sinuses: Imaged portions unremarkable. IMPRESSION: 1. No acute intracranial abnormality, particularly no acute hemorrhage or acute major vascular territorial infarct. 2. Mild supratentorial white matter microvascular ischemic changes and old lacunar infarct in genu of right internal capsule. 3. Left occipital dural based, extra-axial partially calcified lesion with adjacent calvarial hyperostosis, probably represents a meningioma. Signed by: Dr. Heike Abrams M.D. on 07/13/2018 7:36 PM
--- NOTE | 2018-07-13 19:45 | Diagnostic Imaging Report ---
Examination: Single AP view of the chest. COMPARISON: AP chest 12/15/2017 INDICATION: Left-sided chest pain IMPRESSION: 1. Lines and Tubes: None 2. Lungs are grossly clear. No consolidation or effusion. 3. Cardiomediastinal silhouette is normal. Pulmonary vasculature is normal. 4. No acute bony abnormalities. Signed by: Dr. Chuy Rodriguez M.D. on 07/13/2018 7:42 PM
[2018-07-13] MEDS ORDERED: DIPHENHYDRAMINE HCL 25 MG CAP PO ONE (22:30)
[2018-07-13 22:45] LABS: CLARITY,URINE CLEAR (CLEAR); COLOR,URINE YELLOW (YELLOW)
[2018-07-13 22:46] LABS: BILIRUBIN,URINE NEGATIVE (NEGATIVE); KETONES,URINE NEGATIVE (NEGATIVE); LEUKOCYTE ESTERASE ,URINE TRACE (NEGATIVE); NITRITE,URINE NEGATIVE (NEGATIVE); PROTEIN,URINE DIPSTICK TRACE (NEGATIVE); URINE UROBILINOGEN 0.2 mg/dL (0.2 - 1)
[2018-07-13 23:05] LABS: BACTERIA,URINE FEW /HPF; EPITHELIAL CELLS,URINE RARE /LPF
== END 2018-07-13 23:35 | disposition home or self-care (01) ==
LOC: ER 18:14
DX: R07.89 Other chest pain (principal); R53.1 Weakness; N39.0 Urinary tract infection, site not specified; N30.90 Cystitis, unspecified without hematuria
CPT/HCPCS: 36415; 70450; 71045; 80053; 81001; 82550; 82553; 83735; 84484; 85025; 85610; 85730; 93005; 99284

== ENCOUNTER 2018-07-28 19:11 | Emergency (ER) | payer OTHER ==
[~2018-07-28] VITALS: Ht 152.4 cm; Wt 61.2 kg
--- OUTSIDE RECORDS SUMMARY | 2018-07-28 19:14 | XMS REPORT ---
Author [facility] Address Unknown Phone Unavailable Care Team Providers Care Sap Basis Name Role Phone Maria Del Carmen CATALAN DANIEL Unavailable Unavailable PETER SCHWARZ Unavailable Unavailable Problems This patient has no known problems. Allergies, Adverse Reactions, Alerts This patient has no known allergies or adverse reactions. Medications This patient has no known medications. Results Test Description Test Time Test Comments Text Results Atomic Results Result Comments CHEST SINGLE (PORTABLE) 2018-07-13 19:42:00 [place] [address] Patient Name: JANUSZ KITCHEN MR #: [id number] : 1960 Age/Sex: 57/F Req #: [id number] Adm Physician: Ordered by: SAMARIA OLSON SASH CLAMP OPERATOR Report #: [id number] Location: ER Room/Bed: Procedure: [id number] DX/CHEST SINGLE (PORTABLE) Exam Date: Exam Time: REPORT STATUS: Signed Examination: Single AP view of the chest. COMPARISON: AP chest 12/15/2017 INDICATION: Left-sided chest pain IMPRESSION: 1. Lines and Tubes: None 2. Lungs are grossly clear. No consolidation or effusion. 3. Cardiomediastinal silhouette is normal. Pulmonary vasculature is normal. 4. No acute bony abnormalities. Signed by: Dr. Chuy Cheng M.D. on 07/13/2018 7:42 PM Dictated By: CHUY CHENG MD 41 Transcribed By: ANDERS on 07/13/181941 COPY TO: SAMARIA OLSON NP CT BRAIN WO 2018-07-13 19:29:00 [place] [address] Patient Name: JANUSZ KITCHEN MR #: [id number] : 1960 Age/Sex: 57/F Req #: [id number] Adm Physician: Ordered by: SAMARIA OLSON NP Report #: [id number] Location: ER Room/Bed: Procedure: [id number] CT/CT BRAIN WO Exam Date: Exam Time: REPORT STATUS: Signed EXAMINATION: Head CT without contrast. HISTORY:Left side facial twitching, history of CVA. COMPARISON:None. TECHNIQUE: Multidetector axial images were obtained from the foramen magnum to the vertex without contrast. The images were reconstructed using brain and bone algorithms. Thin section brain images were reformatted into coronal and sagittal planes. Dose modulation, iterative reconstruction, and/or weight based adjustment of the mA/kV was utilized to reduce the radiation dose to as low as reasonably achievable. Intravenous contrast: None IMAGE QUALITY: Suboptimal evaluation particularly of the skull base and posterior fossa structures due to motion artifacts. FINDINGS: Skull/scalp: No lytic or blastic. lesions. No surgical changes. Parenchyma: Focal hypodensity in genu of right internal capsule represents old lacunar infarct. Nonspecific few, scattered supratentorial white matter hypodensity are likely related to small vessel ischemic changes. No acute hemorrhage, mass or acute major vascular territorial infarct. Arteries: No density suggestive of thrombosis. Mild atherosclerotic calcification in bilateral carotid siphon. Dural sinuses: No abnormal density suggestive of thrombosis. Ventricles: No hydrocephalus or displacement. Extra-axial spaces: A 1.7 x 1.7 x 0.9 mm partially calcified hyperdense left occipital extra-axial lesion with adjacent calvarial hyperostosis particularly involving a new table of the calvarium represents an incidental meningioma. Mild regional mass effect. No significant surrounding soft tissue edema. Brain volume: Normal for age. Craniocervical junction: No mass, Chiari malformation, or basilar invagination. Sella: No mass. Paranasal/mastoid sinuses: Imaged portions unremarkable. IMPRESSION: 1. No acute intracranial abnormality, particularly no acute hemorrhage or acute major vascular territorial infarct. 2. Mild supratentorial white matter microvascular ischemic changes and old lacunar infarct in genu of right internal capsule. 3. Left occipital dural based, extra-axial partially calcified lesion with adjacent calvarial hyperostosis, probably represents a meningioma. Signed by: Dr. Heike Abrams M.D. on 07/13/2018 7:36 PM Dictated By: HEIKE ABRAMS MD 35 Transcribed By: ANDERS on 07/13/181935 COPY TO: SAMARIA OLSON NP CHEST SINGLE (PORTABLE) [place] [address] Patient Name: JANUSZ KITCHEN MR #: [id number] : 1960 Age/Sex: 57/F Req #: [id number] Adm Physician: PETER SCHWARZ MD Ordered by: Enma Mace SASH CLAMP OPERATOR Report #: [id number] Location: MED/SURG Room/Bed: [facility] Procedure: [id number] DX/CHEST SINGLE (PORTABLE) Exam Date: 12/15/17 Exam Time: 05 REPORT STATUS: Signed CHEST SINGLE (PORTABLE), 12/15/2017 5:00 AM Technique: CHEST SINGLE (PORTABLE) Comparison: 12/14/2017 Clinical history: Shortness of breath Findings: See Impression Impression: 1. Stable cardiomediastinal silhouette. 2. Diffuse bilateral opacities, favor edema with bibasilar atelectasis. Possible underlying pleural effusions. Signed by: Dr Latisha Aquino MD on 12/15/2017 6:34 AM Dictated By: LATISHA AQUINO MD 3 Transcribed By: ANDERS on 12/15/17633 COPY TO: ENMA MACE SASH CLAMP OPERATOR CHEST SINGLE (PORTABLE) [place] [address] Patient Name: JANUSZ KITCHEN MR #: [id number] : 1960 Age/Sex: 57/F Req #: [id number] Adm Physician: PETER SCHWARZ MD Ordered by: Enma Mace SASH CLAMP OPERATOR Report #: [id number] Location: MED/SURG Room/Bed: [facility] Procedure: [id number] DX/CHEST SINGLE (PORTABLE) Exam Date: 12/14/17 Exam Time: 09 REPORT STATUS: Signed EXAMINATION: CHEST SINGLE (PORTABLE) INDICATION: COMPARISON: None FINDINGS: AP view TUBES and LINES: None. LUNGS: Low lung volumes. Pulmonary vascular congestion and mild interstitial edema. PLEURA: No pneumothorax. Trace left pleural effusion. HEART AND MEDIASTINUM: The cardiomediastinal silhouette is enlarged. BONES AND SOFT TISSUES: No acute osseous lesion. Soft tissues are unremarkable. UPPER ABDOMEN: No free air under the diaphragm. IMPRESSION: Pulmonary vascular congestion and mild interstitial edema. Trace left pleural effusion. Signed by: Dr. Judd Hill MD on 12/14/2017 9:38 AM Dictated By: JUDD HILL MD 7 Trans cribed By: ANDERS on 12/14/17937 COPY TO: ENMA MACE NP US EXTREMITY MCGUIRE NON-VAS [place] [address] Patient Name: JANUSZ KITCHEN MR #: [id number] : 1960 Age/Sex: 57/F Req #: [id number] Adm Physician: PETER SCHWARZ MD Ordered by: Enma Mace NP Report #: [id number] Location: MED/SURG Room/Bed: [facility] Procedure: [id number] US/US EXTREMITY MCGUIRE NON-VAS Exam Date: 12/13/17 Exam Time: 1626 REPORT STATUS: Signed EXAM: US EXTREMITY MCGUIRE NON-VAS INDICATION: COMPARISON: None TECHNIQUE: Transverse and sagittal images were performed of the subcutaneous soft tissues of the right upper back.. FIN DINGS: No masses or fluid collections within the visualized subcutaneous soft tissues of the right upper back. The soft tissues appear relatively symmetric when compared to the left. IMPRESSION: No masses or fluid collections within the visualized subcutaneous soft tissues of the right upper back. Signed by: DR. Juanpablo Hubbard MD on 12/13/2017 5:27 PM Dictated By: JUANPABLO HUBBARD MD 26 Transcribed By: ANDERS on 12/13/171726 COPY TO: ENMA MACE SASH CLAMP OPERATOR VQ LUNG SCAN VENT PERFUSION [facility] [address] [place] [address] Patient Name: JANUSZ KITCHEN MR #: [id number] : 1960 Age/Sex: 57/F Req #: [id number] Adm Physician: PETER SCHWARZ MD Ordered by: EMI WALLACE NP Report #: [id number] Location: ICU Room/Bed: ICU [facility] Procedure: [id number] NM/VQ LUNG SCAN VENT PERFUSION Exam Date: Exam Time: REPORT STATUS: Signed EXAM: VENTILATION PERFUSION LUNG SCAN INDICATION: 57 F with acute onset SOB and elevated D-dimer. COMPARISON: None DISCUSSION: Xenon-133 gas 20 mCi was administered via inhalation. Dynamic images of the lungs in the posterior projection were obtained through single breath and washout phases. Distribution of tracer activity is mildly irregular throughout the lungs. Washout is diffusely delayed without evidence of air trapping. Perfusion images of the lungs in multiple projections were obtained following intravenous administration of 6 mCi of Tc-99m MAA. Distribution of tracer is mildly irregular throughout the lungs. There are no segmental perfusion defects of any size. The contours of the lungs are well demarcated. The cardiac silhouette is unremarkable. IMPRESSION: 1. Scan findings represent a VERY LOW probability for acute pulmonary embolic disease based on the PIOPED II criteria. 2. Scan findings are compatible with diffuse parenchymal and/or obstructive lung disease. Signed by: Dr. Nakia Higgins M.D. on 12/10/2017 9:20 PM Dictated By: NAKIA HIGGINS MD 19 Transcribed By: ANDERS on 12/10/172119 COPY TO: EMI WALLACE NP RENAL RETROPERITONEAL COMP [facility] [address] [place] [address] Patient Name: JANUSZ KITCHEN MR #: [id number] : 1960 Age/Sex: 57/F Req #: [id number] Adm Physician: PETER SCHWARZ MD Ordered by: DUGLAS ROA MD Report #: [id number] Location: ICU Room/Bed: [place] [address] Procedure: [id number] US/US RENAL RETROPERITONEAL COMP Exam Date: Exam Time: REPORT STATUS: Signed EXAM: US RENAL RETROPERITONEAL COMP INDICATION: COMPARISON: None TECHNIQUE: Transverse and longitudinal images of the kidneys and bladder were obtained. FINDINGS: Right Kidney: Length: 9.2 cm Appearance: Normal echogenicity. Collecting system: No hydronephrosis Stones: None Cyst/Mass: None Left Kidney: Length: 9.5 cm Appearance: Normal echogenicity. Collecting system: No hydronephrosis Stones: None Cyst/Mass: None Bladder: Normal. Bilateral ureteral jets seen. IMPRESSION: No hydronephrosis. Signed by: Dr Latisha Aquino MD on 12/10/2017 10:52 PM Dictated By: LATISHA AQUINO MD 51 Transcribed By: ANDERS on 12/10/172251 COPY TO: DUGLAS ROA MD
--- OUTSIDE RECORDS SUMMARY | 2018-07-28 19:14 | XMS REPORT | Clinical Summary ---
Author Author [facility] Organization [facility] Address Unknown Phone Unavailable Care Team Providers Care Water Use Inspector Name Role Phone Babar Reddy MD PCP Unavailable Allergies No Known Allergies Medications End Date Status Medication Sig Dispensed Refills Start Date Active citalopram (CELEXA) 20 MG Take 20 mg by 0 tablet mouth daily. Active diclofenac 1 % Gel Apply 2 g 0 topically 4 (four) times daily. Active gabapentin (NEURONTIN) Take 300 mg 0 300 MG capsule by mouth 3 (three) times daily. Active methocarbamol (ROBAXIN) Take 750 mg 0 750 MG tablet by mouth 4 (four) times daily. Active temazepam (RESTORIL) 15 Take 15 mg by 0 mg capsule mouth every night as needed for Sleep. Active atorvastatin (LIPITOR) 80 Take 80 mg by 0 MG tablet mouth daily. Active glyBURIDE (DIABETA) 5 MG Take 5 mg by 0 tablet mouth daily. Active hydroxychloroquine Take by mouth 0 (PLAQUENIL) 200 mg tablet daily. Active latanoprost (XALATAN) 1 drop 0 0.005 % ophthalmic nightly. solution Active lisinopril-hydroCHLOROthi Take 1 tablet 0 azide by mouth (PRINZIDE,ZESTORETIC) daily. 20-25 mg per tablet Active metFORMIN (GLUCOPHAGE) Take 500 mg 0 500 MG tablet by mouth 2 (two) times daily with breakfast and dinner. Active metoprolol (LOPRESSOR) 25 Take 12.5 mg 0 MG tablet by mouth 2 (two) times daily. Active omeprazole (PRILOSEC) 20 Take 20 mg by 0 MG capsule mouth daily. Active oxybutynin (DITROPAN-XL) Take 5 mg by 0 5 MG 24 hr tablet mouth daily. Active SITagliptin (JANUVIA) 100 Take 100 mg 0 MG tablet by mouth daily. Active traMADol (ULTRAM) 50 mg Take 50 mg by 0 tablet mouth every 6 (six) hours as needed for Pain. 12/09/2017 Discontinued atorvastatin (LIPITOR) 40 Take 40 mg by 0 MG tablet mouth daily. 12/09/2017 Discontinued glyBURIDE-metFORMIN Take 1 tablet 0 (GLUCOVANCE) 5-500 mg per by mouth tablet daily with breakfast. 12/09/2017 Discontinued lidocaine (LIDODERM) 5 % Place 1 patch 0 patch onto the skin daily Remove & Discard patch within 12 hours or as directed by MD . 12/09/2017 Discontinued lisinopril Take 20 mg by 0 (PRINIVIL,ZESTRIL) 20 MG mouth daily. tablet 12/09/2017 Discontinued metoprolol (TOPROL-XL) 50 Take 50 mg by 0 MG 24 hr tablet mouth daily. Active Problems Problem Noted Date Localized primary osteoarthritis of lower leg, left 01/30/2016 Type 2 diabetes mellitus 01/30/2016 Primary osteoarthritis of left knee 01/30/2016 Overview: UPDATED BY ICD10 SNOMED/IMO UPDATES Encounters Care Team Description Date Type Specialty Rola Avalos MD 01/29/2018 Hospital Encounter 12/09/2017 Hospital Pre-Admission Testing Encounter after 07/27/2017 Social History Date Tobacco Use Types Packs/Day Years Used Never Smoker Smokeless Tobacco: Never Used Alcohol Use Drinks/Week oz/Week Comments No Sex Assigned at Date Recorded Not on file Industry Job Start Date Occupation Not on file Not on file Not on file Travel End Travel History Travel Start No recent travel history available. Last Filed Vital Signs Not on file Plan of Treatment Not on file Implants Device Identifier Shelf Expiration Date Model / Serial / Lot Implanted Type Area Manufactur er 06/14/2017 [id number] / / [id number] Cement Bone [place] Hv 40/20 - Cement/Caden Left: Knee BIOMET [id number] ler/Adhesi Implanted: Qty: 1 on 01/30/2016 by Micheal Jones MD 06/14/2017 [id number] / / [id number] Cement Bone [place] Hv 40/20 - Cement/Caden Left: Knee BIOMET [id number] ler/Adhesi Implanted: Qty: 1 on 01/30/2016 by Micheal Jones MD 11/22/2020 [id number] / / [id number] Patella Thin 31x6.2mm [id number] - Joints Left: Knee BIOMET [id number] Implanted: Qty: 1 on 01/30/2016 by Micheal Castaneda MD 03/20/2025 [id number] / / [id number] Comp Fem Cr Intlok Vgrd 62.5 L Joints Left: Knee BIOMET [id number] - [id number] Implanted: Qty: 1 on 01/30/2016 by Micheal Castaneda MD 09/15/2024 [id number] / / [id number] Tibial Plate Left: Knee BIOMET Implanted: Qty: 1 on 01/30/2016 by Micheal Castaneda MD 07/27/2020 [id number] / / [id number] Antioxidant Infused Femoral Size Left: Knee BIOMET Implanted: Qty: 1 on 01/30/2016 by Micheal Castaneda MD Results Not on fileafter 07/27/2017 Insurance Payer Benefit Subscriber ID Type Phone Address Plan / Group [facility] x[facility]xxx O/POS [phone] [employer]KTPLACE EXCHANGE Advance Directives For more information, please contact: [facility] [address] [place] [address] Date Inactivated Comments Code Status Date Activated 02/01/2016 3:03 PM Full Code 01/30/2016 5:30 AM This code status was determined by: Patient
[2018-07-28] MEDS ORDERED: ONDANSETRON HCL INJ 2 MG/ML VIAL IV STA (19:27)
[2018-07-28] MEDS ORDERED: SODIUM CHLORIDE 0.9% 500ML 500 ML IV ONE (19:30)
[2018-07-28] MEDS ORDERED: DONNATAL/LIDOCAINE/MAALOX 30 ML SUSP PO ONE (20:15)
== END 2018-07-28 21:20 | disposition home or self-care (01) ==
LOC: FSED 19:11
DX: K29.00 Acute gastritis without bleeding (principal)
CPT/HCPCS: 80053; 81003; 85025; 99283; J2405; J7040

== ENCOUNTER 2023-11-23 10:51 | Emergency (ER) | payer MEDICARE, OTHER ==
[~2023-11-23] VITALS: Ht 152.4 cm; Wt 56.2 kg
[2023-11-23] MEDS ORDERED: PREDNISONE 20 MG TAB ONE (12:00)
[2023-11-23] MEDS: PREDNISONE 20 MG TAB PO ONE (12:04)
[2023-11-23] MEDS: DIPHENHYDRAMINE HCL 25 MG CAP PO ONE (12:05)
[2023-11-23] MEDS: FAMOTIDINE 20 MG/2 ML VIAL IV ONE (12:05)
[2023-11-23] MEDS: ACETAMINOPHEN 325 MG TAB PO ONE (13:36)
[2023-11-23] MEDS ORDERED: ACETAMINOPHEN 325 MG TAB ONE (13:37)
[2023-11-23 14:24] VITALS: BP 122/58; PULSE 77; RESP 18; TEMP 98.4; O2SAT 97
== END 2023-11-23 14:26 | disposition home or self-care (01) ==
LOC: FSED 11:04
DX: R50.9 Fever, unspecified (principal); R21 Rash and other nonspecific skin eruption; T78.40XA Allergy, unspecified, initial encounter; K85.90 Acute pancreatitis without necrosis or infection, unspecified; R74.8 Abnormal levels of other serum enzymes; R94.4 Abnormal results of kidney function studies; I10 Essential (primary) hypertension; E11.9 Type 2 diabetes mellitus without complications; E78.5 Hyperlipidemia, unspecified; E78.00 Pure hypercholesterolemia, unspecified; F32.A Depression, unspecified; K21.9 Gastro-esophageal reflux disease without esophagitis; Z11.52 Encounter for screening for COVID-19; Z86.73 Personal history of transient ischemic attack (TIA), and cerebral infarction without residual deficits; Z96.652 Presence of left artificial knee joint
CPT/HCPCS: 99284; J7512